=== PATIENT | female | born 1955 ===

== ENCOUNTER → 2021-06-05 09:40 | Outpatient (CLI) | payer MEDICARE, OTHER, SELFPAY ==
--- NOTE | ~2021-06-05 | XR_ITS ---
XR shoulder LT min 2V DATE: 06/05/2021 10:34 INDICATION: Shoulder pain TECHNIQUE: 4 views COMPARISON: 05/24/2014 left shoulder FINDINGS: There is diffuse osteopenia. There is mild degenerative change at the acromion reticular joint. No fracture, dislocation, periosteal reaction or bone destruction or abnormal left shoulder soft tiss ue calcification. IMPRESSION: Osteopenia Degenerative change at left acromion clavicular joint Reviewed, dictated and finalized at location B.
--- NOTE | ~2021-06-05 | XR_ITS ---
XR shoulder RT min 2V DATE: 06/05/2021 10:34 INDICATION: Neck pain. Bilateral shoulder pain. TECHNIQUE: 4 views COMPARISON: None FINDINGS: There is diffuse osteopenia. No fracture or dislocation, periosteal reaction or bone destruction or abnormal soft tissue calcifica tion is detected. IMPRESSION: Diffuse osteopenia Reviewed, dictated and finalized at location B. IMPRESSION: Diffuse osteopenia
--- NOTE | ~2021-06-05 | XR_ITS ---
XR lumbar spine 2-3V DATE: 06/05/2021 10:34 INDICATION: Lumbago with sciatica TECHNIQUE: AP, lateral, coned lateral lumbosacral views COMPARISON: None FINDINGS: There is diffuse osteopenia. There is mild levoscoliosis of the lower thoracic and lumbar spine. Normal alignment of the lumbar spine. No fracture or bone destruction or spondylolisthesis. The lumba r and included lower thoracic pedicles are intact. There is moderate loss of interspace height at L5-S1. The lumbar interspaces are relatively preserved . The sacroiliac joints are intact. IMPRESSION: Osteopenia Mild levoscoliosis Mild degenerative change, including moderately prominent loss of disc space height at L5-S1 Reviewed, dictated and finalized at location B. IMPRESSION: Osteopenia Mild levoscoliosis Mild degenerative change, including moderately prominent loss of disc space hei ght at L5-S1
--- NOTE | ~2021-06-05 | XR_ITS ---
XR_[id number]_CR DATE: 06/05/2021 10:34 INDICATION: Neck pain TECHNIQUE: AP, open-mouth, lateral views COMPARISON: 05/24/2014 cervical spine FINDINGS: C1 and C2 are normally aligned and the odontoid process is intact. No fracture or dislocati on or locked facet or prevertebral soft tissue swelling. There is diffuse osteopenia. There is moderately severe degenerative disease and mild retrolisthesis at C5-6. There is moderate degenerative disc disease and mild retrolisthesis at C6-7. IMPRESSION: Degenerative changes; no fracture or dislocation or significant change since 05/24/2014 Reviewed, dictated and finalized at [facility]. Reviewed, dictated and finalized at location B. IMPRESSION: Degenerative changes; no fracture or dislocation or significant giovana nge since 05/24/2014
== END ==
PROVIDERS: PCP Family Medicine; Visit Provider Family Medicine
DX: M85.812 Other specified disorders of bone density and structure, left shoulder (principal); M19.012 Primary osteoarthritis, left shoulder; M85.88 Other specified disorders of bone density and structure, other site; M51.36 Other intervertebral disc degeneration, lumbar region; M50.30 Other cervical disc degeneration, unspecified cervical region; M85.811 Other specified disorders of bone density and structure, right shoulder
CPT/HCPCS: 72040; 72100; 73030